=== PATIENT | female | born 1965 | race Two or more races ===

== ENCOUNTER → 2024-05-01 | Outpatient (CLI) | payer OTHER, SELFPAY ==
[2024-05-01 09:37] LABS: Basophils % (Auto) 0 % (0-2.5); Eosinophils # (Auto) 0.3 Thou/mm3 (0.0-0.5); Eosinophils % (Auto) 6 % (0-10); Hematocrit 29.9 % (36.0-46.0); Hemoglobin 9.6 g/dL (12.0-16.0); Immature Granulocytes % (Auto) 0 % (0-0); Lymphocytes % (Auto) 20 % (10-50); Mean Corpuscular HGB Conc 32.1 g/dl (31.0-37.0); Mean Corpuscular Hemoglobin 28.4 pg (25.0-35.0); Mean Corpuscular Volume 89 fL (80-100); Monocytes # (Auto) 0.4 Thou/mm3 (0.0-0.8); Monocytes % (Auto) 8 % (0-12); Neutrophils # (Auto) 3.4 Thou/mm3 (1.8-7.7); Neutrophils % (Auto) 67 % (37-80); Nucleated Red Blood Cell % 0 /100 WBC (0); Platelet Count 223 Thou/mm3 (140-440); RDW Standard Deviation 43.5 fL (36.4-46.3); Red Blood Count 3.38 Miln/mm3 (4.00-5.20); White Blood Count 5.2 Thou/mm3 (3.6-11.0)
[2024-05-01 09:37] LABS: Collection Type, Urine Clean Catch
[2024-05-01 09:57] LABS: Parathyroid Hormone Intact 202.3 pg/ml (18.5-88.0)
[2024-05-01 10:04] LABS: Alanine Aminotransferase 16 U/L (10-49); Albumin, Serum 4.4 gm/dL (3.4-4.8); Albumin/Globulin Ratio 1.6 (1.2-2.2); Anion Gap 9 (7-16); Aspartate Amino Transferase 19 U/L (0-34); BUN/Creatinine Ratio 23 Ratio (12-20); Bilirubin,Total 0.3 mg/dL (0.3-1.2); Blood Urea Nitrogen 91 mg/dL (9-23); Calcium 9.2 mg/dL (8.3-10.6); Calcium (Corrected) 9.2 mg/dL (8.5-10.1); Carbon Dioxide 22.3 mMol/L (20.0-31.0); Chloride 106 mMol/L (98-107); Cholesterol 172 mg/dL (132-200); Globulin 2.8 gm/dL (2.3-3.5); Glucose 99 mg/dL (74-106); HDL Cholesterol 43 mg/dL (40-60); Osmolality,Calculated 301 (275-295); Sodium 137 mMol/L (136-145); Total Protein 7.2 gm/dL (5.7-8.2); Triglycerides 95 mg/dL (30-150); eGFR 12 See Note
[2024-05-01 10:05] LABS: Alkaline Phosphatase 80 U/L (46-116); LDL Cholesterol,Calculated 110 mg/dL (0-130)
[2024-05-01 10:07] LABS: Vitamin D 25 Hydroxy Total 30.7 ng/mL (7.3-40.2)
[2024-05-01 10:40] LABS: Bilirubin,Urine Negative (Negative); Blood,Urine 2+ (Negative); Clarity,Urine Clear (Clear/Hazy); Color,Urine Colorless (Lt Yel-Yel); Glucose, Urine Negative (Negative); Ketones,Urine Negative (Negative); Leukocyte Esterase,Urine Positive (Negative); Nitrite,Urine Negative (Negative); Protein,Urine 1+ (Neg - Trace); RBC,Urine 11 /hpf (0-3); Squamous Epithelial Cell,Urine 1 /hpf (0-5); Urobilinogen,Urine Negative mg/dL (0.0-1.0); WBC,Urine 5 /hpf (0-5)
[2024-05-01 10:56] LABS: Creatinine,Random Urine 50 mg/dL (30-125); Protein Total, Random Urine 71 mg/dL (1-14)
== END | disposition home or self-care (01) ==
LOC: COPL 08:44
PROVIDERS: PCP Family Medicine; Referring Provider Internal Medicine; Visit Provider Internal Medicine
DX: N18.4 Chronic kidney disease, stage 4 (severe) (principal); I10 Essential (primary) hypertension
CPT/HCPCS: 36415; 80053; 80061; 81001; 82306; 82570; 83970; 84156; 85025

== ENCOUNTER → 2024-07-01 | Outpatient (CLI) | payer OTHER, SELFPAY ==
[2024-07-01 15:50] LABS: Collection Type, Urine Clean Catch
[2024-07-01 16:22] LABS: Bilirubin,Urine Negative (Negative); Blood,Urine 2+ (Negative); Clarity,Urine Clear (Clear/Hazy); Color,Urine Colorless (Lt Yel-Yel); Glucose, Urine Negative (Negative); Ketones,Urine Negative (Negative); Leukocyte Esterase,Urine Positive (Negative); Nitrite,Urine Negative (Negative); Protein,Urine 2+ (Neg - Trace); RBC,Urine 13 /hpf (0-3); Squamous Epithelial Cell,Urine 1 /hpf (0-5); Urobilinogen,Urine Negative mg/dL (0.0-1.0); WBC,Urine 5 /hpf (0-5)
[2024-07-01 18:32] LABS: Albumin, Serum 4.3 gm/dL (3.4-4.8); Anion Gap 12 (7-16); BUN/Creatinine Ratio 23 Ratio (12-20); Calcium 10.2 mg/dL (8.3-10.6); Calcium (Corrected) 10.2 mg/dL (8.5-10.1); Carbon Dioxide 21.8 mMol/L (20.0-31.0); Chloride 104 mMol/L (98-107); Glucose 103 mg/dL (74-106); Osmolality,Calculated 312 (275-295); Phosphorous 8.5 mg/dL (2.4-5.1); Potassium 5.2 mMol/L (3.4-5.1); Sodium 138 mMol/L (136-145); eGFR 9 See Note
[2024-07-01 18:35] LABS: Blood Urea Nitrogen 116 mg/dL (9-23)
== END | disposition home or self-care (01) ==
LOC: COPL 15:05
PROVIDERS: PCP Family Medicine; Referring Provider Internal Medicine; Visit Provider Internal Medicine
DX: I12.9 Hypertensive chronic kidney disease with stage 1 through stage 4 chronic kidney disease, or unspecified chronic kidney disease (principal); N18.4 Chronic kidney disease, stage 4 (severe)
CPT/HCPCS: 36415; 80069; 81001

== ENCOUNTER 2024-07-03 15:50 | Observation (INO) | payer OTHER, SELFPAY ==
[2024-07-03 16:08] VITALS: BMI 24.7
--- NOTE | 2024-07-03 16:12 | PD.NEPHHP ---
Documentation for date of: 07/03/24 History of Present Illness History of Present Illness Chief complaint: LORETTA on CKD 5 History of present illness: Ms. Carrillo is a 58year-old female with a history of polycystic kidney disease (40 years-has been declining medical treatment including CECI inhibitor/ARB/Jynarque), CKD stage V secondary to PCKD, asthma, renal osteodystrophy has been following up with me for the last few years and noted to have worsening renal function with a significant azotemia, anemia, hypercalcemia,hyperphosphatemia that I had to send her to the hospital for initiation of dialysis. Renal replacement therapy options given to the patient and patient chose home dialysis. Spoke to Dr. Smith who will do peritoneal dialysis catheter tomorrow. Patient admitted tonight for PD catheter placement tomorrow. Blood pressure 140/94, heart rate 87. Home medications included amlodipine, albuterol, calcitriol, vitamin D, Flonase, questionable gabapentin, potassium Labs showed WBC 6.2, hemoglobin 8.8, platelets 221. INR 1. Sodium 136, potassium 4.7, bicarbonate 21, BUN 4.7, GFR 10, calcium 11.1 hep panel negative. Patient currently seen in medical floor. Review of Systems Review of Systems Narrative Review of Systems: CONSTITUTIONAL: Patient denies any fever, chills. Complaining of fatigue HEENT: Denies any visual disturbances or hearing problems. CARDIOVASCULAR: Patient denies any chest pain, shortness of breath, swelling in the lower extremities. PULMONARY: Patient denies any shortness of breath, cough. GASTROINTESTINAL: Patient denies any abdominal pain, constipation, nausea, vomiting, diarrhea. GENITOURINARY: Patient denies any urinary symptoms of burning or frequency or hematuria, denies any form in the urine. SKIN: Denies any rash. MUSCULOSKELETAL: Denies any muscular skeletal problems of joint pains. NEUROLOGICAL: Denies any neurological problems of strokes, seizures or confusion. Denies any memory problems. PSYCHIATRIC: Denies any depression or anxiety. LYMPHATICS : No lymphadenopathy Past Medical History Past Medical History NEUROLOGIC: Negative Neurological Disorders CARDIAC: Negative Cardiac Disorders or Congestive Heart Failure RESPIRATORY: Positive Asthma; Negative Chronic Obstructive Pulmonary Disease (COPD) GASTROINTESTINAL: Negative Gastrointestinal Disorders GENITOURINARY: Positive Renal Disease and Polycystic Kidney Disease REPRODUCTIVE: Negative Pelvic Inflammatory Disease MUSCULOSKELETAL: Positive Arthritis; Negative Musculoskeletal Disorders ENDOCRINE: Negative Endocrine Disorders, Diabetes Mellitus Type 1 or Diabetes Mellitus Type 2 HEMATOLOGIC: Negative Blood Disorders OTHER HISTORY: Negative Autoimmune Disease or Cancer Surgical History SURGICAL: Positive Tubal Ligation Social History SMOKING STATUS: Never smoker SECOND HAND EXPOSURE: No Meds Home Medications and Allergies Home Medications ?Medication ?Instructions ?Recorded ?Confirmed ?Type albuterol sulfate 90 mcg/actuation 1 - 2 puff inhalation Q6HR PRN 12/22/20 07/03/24 History aerosol inhaler (ProAir HFA) Shortness Of Breath ergocalciferol (vitamin D2) 1,250 1,250 mcg PO QWEEK 12/22/20 06/20/22 History mcg (50,000 unit) capsule (Vitamin D2) omega 7-pty-qrv-fish oil 1,000 mg 1 cap PO QDAY 12/22/20 07/03/24 History (120 mg-180 mg) capsule (Fish Oil) fluticasone propionate 44 1 puff inhalation BID 05/12/22 07/03/24 History mcg/actuation HFA aerosol inhaler (Flovent HFA) gabapentin 100 mg capsule 100 mg PO QDAY 05/12/22 06/20/22 History potassium chloride 10 mEq 10 meq PO QDAY 05/12/22 05/12/22 History tablet,extended release(part/cryst) B-complex with vitamin C 1 tab PO QDAY 07/03/24 07/03/24 History amlodipine 5 mg tablet 5 mg PO BID 07/03/24 07/03/24 History calcitriol 0.5 mcg capsule 0.5 mcg PO Q12H 07/03/24 07/03/24 History Allergies Allergy/AdvReac Type Severity Reaction Status Date / Time Iodinated Contrast Media Allergy Mild Itching Verified 05/24/22 06:54 Exam Vital Signs Temp Pulse Resp BP Pulse Ox O2 Del Method 36.3 C 81 18 136/87 H 99 Room Air 05/13/22 08:00 05/13/22 08:00 05/13/22 08:00 05/13/22 08:00 05/13/22 08:00 05/13/22 08:00 Narrative Exam GENERAL APPEARANCE: Patient in floor. Uremic breath noted. CARDIOVASCULAR: Heart regular, no murmurs LUNGS/CHEST: Chest clear to auscultation. No rales, rhonchi, wheezing ABDOMEN: Soft, nontender, nondistended. No masses. Normal bowel sounds. EXTREMITIES: No edema, clubbing or cyanosis. SKIN: Skin exam normal without any rashes MUSCULOSKELETAL: Musculoskeletal exam normal PSYCHIATRIC: Normal mood, affect LYMPHATICS: No lymphadenopathy noted NEUROLOGICAL : No neurological deficits Results: Labs 07/03/24 17:12 07/03/24 17:12 Assessment & Plan Assessment and plan (1) Acute on chronic renal failure: Status: Acute (2) ADPKD (autosomal dominant polycystic kidney disease): Status: Acute (3) Intractable back pain: Status: Acute (4) Anemia: Status: Acute (5) Renal osteodystrophy: Status: Acute Additional Assessment & Plan Additional Plan: 1) Acute on chronic renal failure: ?Status:?Acute ? ? ? Assessment and plan: Acute on chronic renal insufficiency secondary to slow progression of her underlying polycystic kidney disease leading towards end-stage kidney failure. Renal replacement therapy options given. Patient chose peritoneal dialysis. Dr Smith planning to do PD catheter tomorrow.?Underlying CKD stage V from progressive polycystic kidney disease.? Patient has PCKD for more than 40 years.? She has been declining all medical management.? Several times I offered JYNARQUE but she declined. Marked azotemia noted. (2) ADPKD (autosomal dominant polycystic kidney disease): ?Status:?Acute ? ? ? Assessment and plan: Progressive disease.? Has been slowly progressing over the past 40 years--now in end-stage failure. (3) renal osteodystrophy : ?Status:?Acute ? ? ? Assessment and plan: Noted hypercalcemia. Will discontinue vitamin D and calcitriol. (4) back pain: ?Status:?Acute ? ? ? Assessment and plan: Intractable back pain from polycystic kidney disease (5) Anemia: ?Status:?Acute ? ? ? Assessment and plan: I gave iron, Procrit.? Estimated length of stay 1 to 2 days DVT prophylaxis ambulate GI prophylaxis not needed CODE STATUS full code Disposition Quality Measures Quality Measures VTE prophylaxis
[2024-07-03 16:14] VITALS: BP 143/88; PULSE 91; RESP 16; TEMP 36.7; O2SAT 99
[2024-07-03 17:27] LABS: Basophils % (Auto) 0 % (0-2.5); Eosinophils # (Auto) 0.2 Thou/mm3 (0.0-0.5); Eosinophils % (Auto) 4 % (0-10); Hematocrit 26.8 % (36.0-46.0); Immature Granulocytes % (Auto) 0 % (0-0); Immature Granulocytes Auto 0.01 Thou/mm3 (0.00-0.00); Lymphocytes # (Auto) 1.4 Thou/mm3 (1.0-4.8); Lymphocytes % (Auto) 22 % (10-50); Mean Corpuscular HGB Conc 32.8 g/dl (31.0-37.0); Mean Corpuscular Hemoglobin 29.2 pg (25.0-35.0); Mean Corpuscular Volume 89 fL (80-100); Monocytes # (Auto) 0.5 Thou/mm3 (0.0-0.8); Monocytes % (Auto) 8 % (0-12); Neutrophils # (Auto) 4.1 Thou/mm3 (1.8-7.7); Neutrophils % (Auto) 66 % (37-80); Nucleated Red Blood Cell % 0 /100 WBC (0); Platelet Count 221 Thou/mm3 (140-440); RDW Standard Deviation 42.1 fL (36.4-46.3); Red Blood Count 3.01 Miln/mm3 (4.00-5.20); White Blood Count 6.2 Thou/mm3 (3.6-11.0)
[2024-07-03 17:30] LABS: Hemoglobin 8.8 g/dL (12.0-16.0)
[2024-07-03 18:01] LABS: Partial Thromboplastin Time 25.6 Seconds (22.0-36.0); Prothrombin Time 10.7 Seconds (9.0-12.2)
[2024-07-03 18:08] LABS: Alanine Aminotransferase 12 U/L (10-49); Albumin, Serum 4.6 gm/dL (3.4-4.8); Albumin/Globulin Ratio 1.5 (1.2-2.2); Alkaline Phosphatase 66 U/L (46-116); Anion Gap 12 (7-16); Aspartate Amino Transferase 17 U/L (0-34); BUN/Creatinine Ratio 22 Ratio (12-20); Bilirubin,Total 0.3 mg/dL (0.3-1.2); Calcium 11.1 mg/dL (8.3-10.6); Calcium (Corrected) 11.1 mg/dL (8.5-10.1); Chloride 103 mMol/L (98-107); Creatinine (Component) 4.7 mg/dL (0.6-1.3); Estimated Creatinine Clearance 10.5 mL/min (>60); Glucose 94 mg/dL (74-106); Osmolality,Calculated 304 (275-295); Potassium 4.7 mMol/L (3.4-5.1); Sodium 136 mMol/L (136-145); Total Protein 7.6 gm/dL (5.7-8.2); eGFR 10 See Note
[2024-07-03 18:10] LABS: Blood Urea Nitrogen 104 mg/dL (9-23)
--- NOTE | 2024-07-03 18:34 | PC.NURSE ---
Dr. Slater aware pt. Home meds have been entered. States I will order home meds, please enter orders for pt. home inhalers to be used as pt. home meds and I will do the others. orders to insert IV as IVL now.
[2024-07-03 18:36] LABS: Hepatitis A Antibody IgM Non Reactive (Non React); Hepatitis B Core Antibody IgM Non Reactive (Non React); Hepatitis B Surface Antigen Non Reactive (Non React); Hepatitis C Antibody Non Reactive (Non React)
[2024-07-03] MEDS: TUBERCULIN PPD INJ 5 UNIT/0.1 ML DOSE ID (18:50)
[2024-07-03 20:00] VITALS: BP 140/94; PULSE 87; RESP 16; TEMP 36.4; O2SAT 99
[2024-07-03 21:14] VITALS: BP 140/94; PULSE 87
[2024-07-03] MEDS: amLODIPine BESYLATE 5 MG TABLET PO (21:14)
[2024-07-03 23:45] VITALS: BP 149/79; PULSE 90; RESP 20; TEMP 36.6; O2SAT 98
[2024-07-03 23:49] VITALS: PULSE 90; RESP 18; O2SAT 98
[2024-07-03] MEDS: ALBUTEROL INH 8 GM 1 PUFF INH (23:49)
[2024-07-04] VITALS (12 sets, daily range): BP systolic 131–165; BP diastolic 72–93; PULSE 74–90; RESP 15–97; TEMP 36.2–36.9; O2SAT 97–100
[2024-07-04 05:55] LABS: Basophils % (Auto) 0 % (0-2.5); Eosinophils # (Auto) 0.3 Thou/mm3 (0.0-0.5); Eosinophils % (Auto) 5 % (0-10); Hematocrit 25.9 % (36.0-46.0); Immature Granulocytes % (Auto) 0 % (0-0); Immature Granulocytes Auto 0.01 Thou/mm3 (0.00-0.00); Lymphocytes # (Auto) 1.3 Thou/mm3 (1.0-4.8); Lymphocytes % (Auto) 24 % (10-50); Mean Corpuscular HGB Conc 32.4 g/dl (31.0-37.0); Mean Corpuscular Hemoglobin 28.7 pg (25.0-35.0); Mean Corpuscular Volume 88 fL (80-100); Monocytes # (Auto) 0.5 Thou/mm3 (0.0-0.8); Monocytes % (Auto) 9 % (0-12); Neutrophils # (Auto) 3.3 Thou/mm3 (1.8-7.7); Neutrophils % (Auto) 62 % (37-80); Nucleated Red Blood Cell % 0 /100 WBC (0); Platelet Count 211 Thou/mm3 (140-440); RDW Standard Deviation 41.8 fL (36.4-46.3); Red Blood Count 2.93 Miln/mm3 (4.00-5.20); White Blood Count 5.4 Thou/mm3 (3.6-11.0)
[2024-07-04 06:02] LABS: Hemoglobin 8.4 g/dL (12.0-16.0)
[2024-07-04 06:40] LABS: Alanine Aminotransferase 11 U/L (10-49); Albumin, Serum 4.1 gm/dL (3.4-4.8); Albumin/Globulin Ratio 1.4 (1.2-2.2); Alkaline Phosphatase 64 U/L (46-116); Anion Gap 9 (7-16); Aspartate Amino Transferase 16 U/L (0-34); BUN/Creatinine Ratio 23 Ratio (12-20); Bilirubin,Total 0.3 mg/dL (0.3-1.2); Calcium 11.3 mg/dL (8.3-10.6); Calcium (Corrected) 11.3 mg/dL (8.5-10.1); Carbon Dioxide 20.2 mMol/L (20.0-31.0); Chloride 107 mMol/L (98-107); Creatinine (Component) 4.7 mg/dL (0.6-1.3); Estimated Creatinine Clearance 10.5 mL/min (>60); Glucose 113 mg/dL (74-106); Osmolality,Calculated 306 (275-295); Potassium 4.9 mMol/L (3.4-5.1); Sodium 136 mMol/L (136-145); Total Protein 7.1 gm/dL (5.7-8.2); eGFR 10 See Note
[2024-07-04 06:58] LABS: Blood Urea Nitrogen 106 mg/dL (9-23)
--- NOTE | 2024-07-04 08:41 | ESPR_ITS ---
Documentation for date of: 07/04/24 Subjective Subjective Interval history: Jess Carrillo is a 58 year-old female with a past medical history of polycystic kidney disease (40 years, has been declining medical treatment including CECI inhibitor/ARB/Jynarque), CKD stage V secondary to PCKD, asthma, and renal osteodystrophy who has followed Dr. Slater for the last few years and noted to have worsening renal function with significant azotemia, anemia, hypercalcemia, and hyperphosphatemia that was sent to the ED for initiation of dialysis. PETROLEUM ENGINEER options were given to the patient and she chose home dialysis. Dr. Smith was consulted for placement of PD catheter. In ED, BP 140/94, HR 87. WBC 6.2, hemoglobin 8.8, platelets 221. INR 1. Na 136, K 4.7, bicarbonate 21, BUN 4.7, Cr 4.7, GFR 10, Ca 11.1, hep panel negative. Home meds include amlodipine, albuterol, calcitriol, vitamin D, Flonase, ? gabapentin, potassium. 07/04: Seen and examined on medical floor, laying comfortably in bed. No acute overnight events reported. PPD placed 07/03 and is to be read tomorrow. Currently NPO, pending procedure. Will give Retacrit and Feraheme as hemoglobin noted to be dropping from 8.8 to 8.4. BUN 106, Cr 4.7, GFR 10, Ca 11.3. Will hold calcitriol and vitamin D given elevated Ca. Exam Vital Signs Temp Pulse Resp BP Pulse Ox O2 Del Method 97.2 F 87 18 145/77 H 98 Room Air 07/04/24 07:48 07/04/24 07:48 07/04/24 07:48 07/04/24 07:48 07/04/24 07:48 07/04/24 07:48 Narrative Exam General: AOx3, no acute distress, able to speak full sentences HEENT: NC/AT, mucous membranes moist, bilateral sclera anicteric Cardiovascular: regular rate and rhythm, S1/S2 present, no murmurs appreciated Pulmonary: clear to auscultation bilaterally, no rales/rhonchi/wheezes Abdominal: soft, non-tender, non-distended, no rebound/guarding, normal bowel sounds present Musculoskeletal: normal ROM, no peripheral edema Skin: warm and dry, intact, no rashes Neuro: CN II-XII intact, no focal deficits Objective Labs 07/05/24 05:00 07/04/24 04:38 Labs: Laboratory Results - last 24 hr 07/03/24 07/04/24 17:12 04:38 WBC 6.2 5.4 RBC 3.01 L 2.93 L Hgb 8.8 L 8.4 L Hct 26.8 L 25.9 L MCV 89 88 MCH 29.2 28.7 MCHC 32.8 32.4 RDW Std Deviation 42.1 41.8 Plt Count 221 211 Neut % (Auto) 66 62 Lymph % (Auto) 22 24 [place] % (Auto) 8 9 Eos % (Auto) 4 5 Baso % (Auto) 0 0 Neut # (Auto) 4.1 3.3 Lymph # (Auto) 1.4 1.3 [place] # (Auto) 0.5 0.5 Eos # (Auto) 0.2 0.3 Baso # (Auto) 0.0 0.0 Immature Gran # (Auto) 0.01 H 0.01 H Absolute Nucleated RBC 0.00 0.00 Immature Gran % 0 0 Nucleated RBC % 0 0 PT 10.7 INR 1.0 APTT 25.6 Sodium 136 136 Potassium 4.7 D 4.9 Chloride 103 107 Carbon Dioxide 21.0 20.2 Anion Gap 12 9 BUN 104 H* 106 H* Creatinine 4.7 H* 4.7 H* Estim Creat Clear Calc 10.5 L 10.5 L eGFR 10 L* 10 L* BUN/Creatinine Ratio 22 H 23 H Glucose 94 113 H Calculated Osmolality 304 H 306 H Calcium 11.1 H 11.3 H Corrected Calcium 11.1 H 11.3 H Total Bilirubin 0.3 0.3 AST 17 16 ALT 12 11 Alkaline Phosphatase 66 64 Total Protein 7.6 7.1 Albumin 4.6 4.1 D Globulin 3.0 3.0 Albumin/Globulin Ratio 1.5 1.4 Hepatitis A IgM Ab Non Reactive Hep Bs Antigen Non Reactive Hep B Core IgM Ab Non Reactive Hepatitis C Antibody Non Reactive Quality Measures Quality Measures VTE prophylaxis Assessment & Plan Assessment Current Active Medications: Generic Name Dose Route Start Last Admin Trade Name Freq PRN Reason Stop Dose Admin Albuterol 1 puff 07/03/24 19:10 07/03/24 23:49 Albuterol Inh 8 Gm INH 08/02/24 19:09 1 puff Q6H PRN Administration SHORTNESS OF BREATH Amlodipine Besylate 5 mg 07/03/24 21:00 07/03/24 21:14 Amlodipine Besylate 5 Mg Tablet PO 08/02/24 20:59 5 mg BID [place] Administration Artificial Tears 0 drop 07/04/24 06:04 Artificial Tears 225 Drop/15 Ml Btl BOTH EYES 08/03/24 06:03 PRN PRN TO KEEP EYES MOIST Epoetin Kashif 10,000 unit 07/04/24 08:24 Epoetin Kashif-Epbx Inj 10,000 Unit/Ml Vial (Esrd) SC 07/04/24 08:25 X1 ONE Guaifenesin/Dextromethorphan 1 each 07/04/24 08:24 Guaifenesin/Dm Tablet PO 08/03/24 08:23 BID PRN COUGH Ferumoxytol 510 mg/ Sodium 117 mls @ 234 mls/hr 07/04/24 08:40 Chloride IV 07/04/24 08:41 X1 ONE Non-Formulary Medication 1 cap 07/04/24 09:00 [place] 1-Lqz-Hec-Fish Oil [Fish Oil] PO 08/03/24 08:59 QDAY [place] Trelegy Ellipta ( 1 ea 07/04/24 09:00 Fluticasone/ INH 08/03/24 08:59 Umeclidinium/ QDAY [place] Vilanterol) 100/62.5 /25 Plan Jess Carrillo is a 58 year-old female with a past medical history of polycystic kidney disease (40 years, has been declining medical treatment including CECI inhibitor/ARB/Jynarque), CKD stage V secondary to PCKD, asthma, and renal osteodystrophy who has followed Dr. Slater for the last few years and noted to have worsening renal function with significant azotemia, anemia, hypercalcemia, and hyperphosphatemia admitted for PD catheter placement and initiation of PETROLEUM ENGINEER. #Acute on chronic renal failure #ADPKD Acute on chronic renal insufficiency secondary to slow progression (~ 40 years) of underlying PKD leading towards ESRD but patient declined all medical management, including JYNARQUE. PETROLEUM ENGINEER options given and patient chose peritoneal dialysis. - Dr. Smith consulted, plans for PD placement today - NPO - PPD placed 07/03, pending read on 07/05 - Hepatitis panel negative #Renal osteodystrophy, secondary to CKD Home calcitriol and vitamin D, but will hold given hypercalcemia of 11.3. #Chronic, normocytic anemia, likely secondary to CKD - Retacrit 10,000 units SC x1 - Feraheme 510 mg IV x1 #Hypertension - Amlodipine 5 mg PO BID #Asthma - Trelegy Ellipta - Albuterol inhaler PRN Hospital management: Disposition: pending PD catheter placement Diet: NPO Lines: peripheral CODE STATUS: full code ----- Plan discussed with attending physician Dr. Nohemy Jang MD PGY-1 Internal Medicine Attending Provider Attestation/Addendum Patient seen and examined with resident physician Dr. Ricketts. Note reviewed, agree with findings and recommendations. Patient currently seen in medical floor. Pending PD catheter placement. Will discharge her tomorrow. Give IV iron and Procrit. Pending outpatient dialysis arrangements.
[2024-07-04] MEDS: amLODIPine BESYLATE 5 MG TABLET PO ×2 (09:16→20:45)
[2024-07-04] MEDS: TRELEGY ELLIPTA 1 EA INH (09:56)
[2024-07-04] MEDS: ACETAMINOPHEN 325 MG TABLET 650 MG PO (11:12)
[2024-07-04] MEDS: ferumoxytoL (ESRD) 510 MG in SODIUM CHLORIDE 0.9% 100 ML 234 MG IV (11:18)
--- NOTE | 2024-07-04 11:55 | PD.SURCONS ---
HPI Consult details Consult date: 07/03/24 Reason for consultation narrative: End-stage renal disease requiring dialysis History of present illness: 58-year-old female with history of hypertension, polycystic kidney disease was noted to have worsening renal function. In anticipation for need for dialysis, patient will require dialysis access. She has elected to proceed with peritoneal dialysis. She denies nausea, vomiting, fever, chills or abdominal pain. Review of Systems Constitutional Constitutional: Denies chills and Denies fever(s) Cardiovascular Cardiovascular: Denies chest pain Respiratory Respiratory: Denies cough Gastrointestinal Gastrointestinal: Denies abdominal pain, Denies nausea and Denies vomiting Genitourinary Genitourinary: Denies dysuria Hematologic/Lymphatic Hematologic/Lymphatic: Denies easy bleeding and Denies easy bruising Past Medical History Surgical History OTHER SURGICAL HX: Tubal ligation, repair of rotator cuff Social History SMOKING STATUS: Never smoker SUBSTANCE USE: does not use ALCOHOL: Never Meds Home Medications and Allergies Home Medications ?Medication ?Instructions ?Recorded ?Confirmed ?Type albuterol sulfate 90 mcg/actuation 1 - 2 puff inhalation Q6HR PRN 12/22/20 07/03/24 History aerosol inhaler (ProAir HFA) Shortness Of Breath ergocalciferol (vitamin D2) 1,250 1,250 mcg PO QWEEK 12/22/20 06/20/22 History mcg (50,000 unit) capsule (Vitamin D2) omega 4-dvi-iij-fish oil 1,000 mg 1 cap PO QDAY 12/22/20 07/03/24 History (120 mg-180 mg) capsule (Fish Oil) fluticasone propionate 44 1 puff inhalation BID 05/12/22 07/03/24 History mcg/actuation HFA aerosol inhaler (Flovent HFA) gabapentin 100 mg capsule 100 mg PO QDAY 05/12/22 06/20/22 History potassium chloride 10 mEq 10 meq PO QDAY 05/12/22 05/12/22 History tablet,extended release(part/cryst) B-complex with vitamin C 1 tab PO QDAY 07/03/24 07/03/24 History amlodipine 5 mg tablet 5 mg PO BID 07/03/24 07/03/24 History calcitriol 0.5 mcg capsule 0.5 mcg PO Q12H 07/03/24 07/03/24 History Allergies Allergy/AdvReac Type Severity Reaction Status Date / Time Iodinated Contrast Media Allergy Mild Itching Verified 05/24/22 06:54 Exam Vital Signs Temp Pulse Resp BP Pulse Ox O2 Del Method 97.2 F 89 18 142/75 H 98 Room Air 07/04/24 07:48 07/04/24 09:16 07/04/24 07:48 07/04/24 09:16 07/04/24 07:48 07/04/24 07:48 Constitutional Constitutional: no acute distress Routine Abdominal Exam Abdominal: Present soft and normoactive bowel sounds; Absent tenderness or distended Assessment & Plan Problem List (1) Acute on chronic renal failure: Status: Acute Plan Will plan for laparoscopic assisted placement of peritoneal dialysis catheter with possible omentopexy. Risks include but not limited to infection, bleeding, injury to bowel, malfunctioning of the catheter, catheter infection, peritonitis, need for further procedure and or operation discussed with the patient. Benefits alternatives explained to her, all her questions answered, she agreed and consented to proceed with the operation. I wish to extend my most sincere thanks to Dr. Slater for consulting me and allowing me to evaluate and participate in care of this patient. (1) Acute on chronic renal failure Qualifiers: Acute renal failure type: unspecified Chronic kidney disease stage: stage 5 (GFR < 15), not on chronic dialysis Qualified Code(s): N17.9 - Acute kidney failure, unspecified; N18.5 - Chronic kidney disease, stage 5
--- NOTE | 2024-07-04 13:12 | PD.SUROPNT ---
Date of Procedure 07/04/24 Pre Op Diagnosis End-stage renal disease Post Op Diagnosis End-stage renal disease Procedure Laparoscopic assisted placement of peritoneal dialysis catheter Findings No evidence of pelvic or abdominal adhesions Procedure Description Patient brought into the operating room in supine position. After administration of general endotracheal anesthesia, patient's abdomen was prepped and draped in standard surgical manner. An approximately 5 mm incision was made in right upper quadrant and Veress needle was inserted. Pneumoperitoneum was obtained up to 15 mmHg and the Veress needle was removed. A 5 mm trocar was placed and laparoscopic camera was inserted. Under direct visualization a laparoscopic camera a 5 mm trocar was placed in left side of the abdomen, this would be used is the exit site of the catheter. The abdomen was inspected. There was no evidence of pelvic or abdominal adhesions. There were no omentum in the pelvis. An approximately 3 cm incision was made to the left of the umbilicus and dissection was carried subcutaneous tissue. A 10 mm trocar was placed through this incision and the peritoneal dialysis catheter was placed through this trocar and advanced into patient's pelvis, the trocar was then removed. The curved end of the catheter was positioned in patient's pelvis. Using an Endo closure device a suture was placed around the catheter in suprapubic region to hold the catheter in place and prevent potential displacement of the catheter in the future. The proximal cuff of the catheter was placed posterior to anterior abdominal fascia in a pursestring suture using 0 Ethibond placed around the catheter to hold the catheter in place and prevent leakage of fluid around the catheter site. Using the tunneling device a tunnel was created in subcutaneous soft tissue and the catheter was placed in soft tissue tunnel and brought out of left abdominal trocar site. The distal cuff was placed in soft tissue. The catheter was flushed with heparinized saline, fluid was being flushed and aspirated without difficulty. Pneumoperitoneum was evacuated and trocars removed. The incisions closed 4-0 Monocryl in subcuticular fashion. Instruments, needles and sponge counts were reported to be correct ?2. Patient tolerated the procedure well, was extubated, breathing spontaneously and without difficulty and was transferred to postanesthesia care in stable condition. Anesthesia GETA and local Pathology / specimen None Estimated Blood Loss 2 Condition Stable Disposition PACU Surgeon Latanya Smith MD Surgical Staff Operation Date: 01/30/25 15:15 <No data on this case meets the specified criteria>
--- NOTE | 2024-07-04 13:22 | SUR.PHASEI ---
1315: Pt. arrived with oral airway in place, vitals stable, breathing unlabored, no signs of distress, dressing to left lower ABD CDI, no active bleed noted, report received from Christophe BRAGA, Jazmin PEREZ, and Vadim ANN.
--- NOTE | 2024-07-04 13:50 | SUR.PHASEI ---
1350: Pt. AAOx4, vitals stable, breathing unlabored, no complaint of pain or nausea, dressing to left lower ABD CDI, no active bleed noted, pt. tolerated bites of ice well, gave report to Jan ANN prior to transfer to room 352. Family made aware of transfer to room.
--- NOTE | 2024-07-04 15:15 | PC.SS ---
Patient is alert/oriented. Patient was admitted for LORETTA, uremia. Patient is independent with ADL's. SS spoke to [employer] and patient will be new to Peritoneal Dialysis. Patient will start training at [facility]. Patient is independent with ADL's. She resides with her . She is employed with [employer]. Patient is aware she will be new to PD. She didn't know she would train at the facililty. SS explained process. Patient states her PCP: Dr. Lee and Smash Piecer is Dr. Slater. Patient pharmacy: [facility]. Patient states she will be returning home and her spouse and family will assist as needed. SS will send updated information to dialysis. Patient to receive dialysis cath today. Spouse, Alex, is the alt medical decision maker.
[2024-07-04] MEDS: EPOETIN ALFA-EPBX INJ 10,000 UNIT/ML VIAL (ESRD) 10000 UNIT SC (15:52)
[2024-07-04] MEDS: ONDANSETRON INJ 2 MG/ML INJ 2 ML 4 MG IV (20:44)
[2024-07-04] MEDS: DOCUSATE SOD 100 MG CAPSULE PO (20:45)
[2024-07-04] MEDS: ACETAMINOPHEN 500 MG TABLET PO (20:45)
[2024-07-04 22:09] LABS: Collection Type, Urine Clean Catch
[2024-07-04 22:37] LABS: Bilirubin,Urine Negative (Negative); Blood,Urine 2+ (Negative); Clarity,Urine Clear (Clear/Hazy); Color,Urine Colorless (Lt Yel-Yel); Culture Indicated,Urine Not Indicated; Glucose, Urine 2+ (Negative); Ketones,Urine Negative (Negative); Leukocyte Esterase,Urine Positive (Negative); Nitrite,Urine Negative (Negative); Protein,Urine 2+ (Neg - Trace); RBC,Urine 39 /hpf (0-3); Squamous Epithelial Cell,Urine 2 /hpf (0-5); Urobilinogen,Urine Negative mg/dL (0.0-1.0); WBC,Urine 7 /hpf (0-5)
[2024-07-05] VITALS (10 sets, daily range): BP systolic 115–165; BP diastolic 73–91; PULSE 92–108; RESP 16–94; TEMP 36.5–36.9; O2SAT 92–99; BMI 24.7
[2024-07-05] MEDS: guaiFENesin/DM TABLET 1 EACH PO (02:20)
[2024-07-05 05:23] LABS: Basophils % (Auto) 0 % (0-2.5); Eosinophils % (Auto) 0 % (0-10); Hematocrit 26.8 % (36.0-46.0); Immature Granulocytes % (Auto) 1 % (0-0); Immature Granulocytes Auto 0.05 Thou/mm3 (0.00-0.00); Lymphocytes # (Auto) 0.4 Thou/mm3 (1.0-4.8); Lymphocytes % (Auto) 4 % (10-50); Mean Corpuscular HGB Conc 32.5 g/dl (31.0-37.0); Mean Corpuscular Hemoglobin 28.7 pg (25.0-35.0); Mean Corpuscular Volume 88 fL (80-100); Monocytes # (Auto) 0.7 Thou/mm3 (0.0-0.8); Monocytes % (Auto) 7 % (0-12); Neutrophils # (Auto) 8.9 Thou/mm3 (1.8-7.7); Neutrophils % (Auto) 89 % (37-80); Nucleated Red Blood Cell % 0 /100 WBC (0); Platelet Count 193 Thou/mm3 (140-440); RDW Standard Deviation 42.2 fL (36.4-46.3); Red Blood Count 3.03 Miln/mm3 (4.00-5.20)
[2024-07-05 05:36] LABS: Hemoglobin 8.7 g/dL (12.0-16.0)
[2024-07-05] MEDS: ONDANSETRON INJ 2 MG/ML INJ 2 ML 4 MG IV ×2 (05:50→21:07)
[2024-07-05 06:16] LABS: Alanine Aminotransferase 8 U/L (10-49); Albumin, Serum 4.2 gm/dL (3.4-4.8); Albumin/Globulin Ratio 1.3 (1.2-2.2); Alkaline Phosphatase 57 U/L (46-116); Anion Gap 12 (7-16); Aspartate Amino Transferase 16 U/L (0-34); BUN/Creatinine Ratio 21 Ratio (12-20); Bilirubin,Total 0.2 mg/dL (0.3-1.2); Calcium 10.9 mg/dL (8.3-10.6); Calcium (Corrected) 10.9 mg/dL (8.5-10.1); Carbon Dioxide 21.2 mMol/L (20.0-31.0); Chloride 104 mMol/L (98-107); Estimated Creatinine Clearance 9.9 mL/min (>60); Globulin 3.3 gm/dL (2.3-3.5); Glucose 137 mg/dL (74-106); Osmolality,Calculated 308 (275-295); Potassium 5.1 mMol/L (3.4-5.1); Sodium 137 mMol/L (136-145); Total Protein 7.5 gm/dL (5.7-8.2); eGFR 9 See Note
[2024-07-05 06:19] LABS: Blood Urea Nitrogen 104 mg/dL (9-23)
[2024-07-05] MEDS: DOCUSATE SOD 100 MG CAPSULE PO ×2 (08:22→21:01)
[2024-07-05] MEDS: ACETAMINOPHEN 500 MG TABLET PO ×2 (08:22→21:07)
[2024-07-05] MEDS: amLODIPine BESYLATE 5 MG TABLET PO ×2 (08:23→21:01)
--- NOTE | 2024-07-05 08:26 | ESPR_ITS ---
Documentation for date of: 07/05/24 Subjective Subjective Interval history: Jess Carrillo is a 58 year-old female with a past medical history of polycystic kidney disease (40 years, has been declining medical treatment including CECI inhibitor/ARB/Jynarque), CKD stage V secondary to PCKD, asthma, and renal osteodystrophy who has followed Dr. Slater for the last few years and noted to have worsening renal function with significant azotemia, anemia, hypercalcemia, and hyperphosphatemia that was sent to the ED for initiation of dialysis. IP LITIGATION PARALEGAL options were given to the patient and she chose home dialysis. Dr. Smith was consulted for placement of PD catheter. In ED, BP 140/94, HR 87. WBC 6.2, hemoglobin 8.8, platelets 221. INR 1. Na 136, K 4.7, bicarbonate 21, BUN 4.7, Cr 4.7, GFR 10, Ca 11.1, hep panel negative. Home meds include amlodipine, albuterol, calcitriol, vitamin D, Flonase, ? gabapentin, potassium. 07/04: Seen and examined on medical floor, laying comfortably in bed. No acute overnight events reported. PPD placed 07/03 and is to be read tomorrow. Currently NPO, pending procedure. Will give Retacrit and Feraheme as hemoglobin noted to be dropping from 8.8 to 8.4. BUN 106, Cr 4.7, GFR 10, Ca 11.3. Will hold calcitriol and vitamin D given elevated Ca. 07/05: Seen and examined at bedside on medical floor. No acute overnight events reported. Status postplacement of PD catheter yesterday, without any intraoperative complications. However, patient states that she has had abdominal discomfort since procedure that radiates to the epigastrium. Spoke to Dr. Smith over the phone, stating that this likely due to catheter tip irritating surrounding tissues. Recommended having a bowel movement to relieve pain so will give dulxcolax to facilitate BM as well as pyridium. Patient also endorses headaches and will give sumatriptan. PPD to be read later on this evening around 6 PM. Exam Vital Signs Temp Pulse Resp BP Pulse Ox O2 Del Method O2 Flow Rate 98.5 F 96 17 155/86 H 99 Room Air 2 07/05/24 08:00 07/05/24 08:23 07/05/24 08:00 07/05/24 08:23 07/05/24 08:00 07/05/24 08:00 07/04/24 13:25 Narrative Exam General: AOx3, in mild distress due to headache and abdominal discomfort, able to speak full sentences HEENT: NC/AT, mucous membranes moist, bilateral sclera anicteric Cardiovascular: regular rate and rhythm, S1/S2 present, no murmurs appreciated Pulmonary: clear to auscultation bilaterally, no rales/rhonchi/wheezes Abdominal: mild tenderness to palpation in center of abdomen, soft Musculoskeletal: normal ROM, no peripheral edema Skin: warm and dry, intact, no rashes Neuro: CN II-XII intact, no focal deficits Objective Labs 07/06/24 06:40 07/06/24 06:40 Labs: Laboratory Results - last 24 hr 07/04/24 07/05/24 21:35 05:00 WBC 10.0 D RBC 3.03 L Hgb 8.7 L Hct 26.8 L MCV 88 MCH 28.7 MCHC 32.5 RDW Std Deviation 42.2 Plt Count 193 Neut % (Auto) 89 H Lymph % (Auto) 4 L Marshall % (Auto) 7 Eos % (Auto) 0 Baso % (Auto) 0 Neut # (Auto) 8.9 H Lymph # (Auto) 0.4 L Marshall # (Auto) 0.7 Eos # (Auto) 0.0 Baso # (Auto) 0.0 Immature Gran # (Auto) 0.05 H Absolute Nucleated RBC 0.00 Immature Gran % 1 H Nucleated RBC % 0 Sodium 137 Potassium 5.1 Chloride 104 Carbon Dioxide 21.2 Anion Gap 12 BUN 104 H* Creatinine 5.0 H* Estim Creat Clear Calc 9.9 L eGFR 9 L* BUN/Creatinine Ratio 21 H Glucose 137 H Calculated Osmolality 308 H Calcium 10.9 H Corrected Calcium 10.9 H Total Bilirubin 0.2 L AST 16 ALT 8 L Alkaline Phosphatase 57 Total Protein 7.5 Albumin 4.2 Globulin 3.3 Albumin/Globulin Ratio 1.3 Ur Collection Type Clean Catch Urine Color Colorless A Urine Clarity Clear Urine pH 6.0 Ur Specific [place] 1.010 Urine Protein 2+ A Urine Glucose (UA) 2+ A Urine Ketones Negative Urine Blood 2+ A Urine Nitrite Negative Urine Bilirubin Negative Urine Urobilinogen (Auto) Negative Ur Leukocyte Esterase Positive Urine RBC 39 H Urine WBC 7 H Ur Squamous Epith Cells 2 Urine Bacteria None Ur Culture Indicated? Not Indicated Quality Measures Quality Measures VTE prophylaxis Assessment & Plan Assessment Current Active Medications: Generic Name Dose Route Start Last Admin Trade Name Freq PRN Reason Stop Dose Admin Acetaminophen 500 mg 07/04/24 20:29 07/05/24 08:22 Acetaminophen 500 Mg Tablet PO 08/03/24 20:28 500 mg Q6HR PRN Administration PAIN SCALE 1-3 (mild Hydrocodone Bitart/Acetaminophen 1 tab 07/04/24 15:06 Hydrocodone/Apap 5/325 Tablet PO 07/09/24 15:05 Q6HR PRN PAIN SCALE 4-10(Mod-Sev Albuterol 1 puff 07/03/24 19:10 07/03/24 23:49 Albuterol Inh 8 Gm INH 08/02/24 19:09 1 puff Q6H PRN Administration SHORTNESS OF BREATH Albuterol/Ipratropium 3 ml 07/04/24 13:08 Albuterol/Ipratropium (Duoneb) Rt Lisa 3 Ml Nebu INH 08/03/24 13:07 Q4HRRT PRN WHEEZING Amlodipine Besylate 5 mg 07/03/24 21:00 07/05/24 08:23 Amlodipine Besylate 5 Mg Tablet PO 08/02/24 20:59 5 mg BID [place] Administration Artificial Tears 0 drop 07/04/24 06:04 Artificial Tears 225 Drop/15 Ml Btl BOTH EYES 08/03/24 06:03 PRN PRN TO KEEP EYES MOIST Bisacodyl 5 mg 07/05/24 08:22 Bisacodyl 5 Mg Tabec PO 07/05/24 08:23 X1 ONE Protocol Docusate Sodium 100 mg 07/04/24 21:00 07/05/24 08:22 Docusate Sod 100 Mg Capsule PO 08/03/24 20:59 100 mg BID [place] Administration Protocol Guaifenesin/Dextromethorphan 1 each 07/04/24 08:24 07/05/24 02:20 Guaifenesin/Dm Tablet PO 08/03/24 08:23 1 each BID PRN Administration COUGH Non-Formulary Medication 1 cap 07/04/24 09:00 07/04/24 15:51 [place] 1-Cwd-Nnc-Fish Oil [Fish Oil] PO 08/03/24 08:59 Not Given QDAY [facility] Ondansetron HCl 4 mg 07/04/24 20:29 07/05/24 05:50 Ondansetron Inj 2 Mg/Ml Inj 2 Ml IV 08/03/24 20:28 4 mg Q6HR PRN Administration NAUSEA OR VOMITING Protocol Trelegy Ellipta ( 1 ea 07/04/24 09:00 07/05/24 07:13 Fluticasone/ INH 08/03/24 08:59 Not Given Umeclidinium/ QDAY [place] Vilanterol) 100/62.5 /25 Phenazopyridine HCl 100 mg 07/05/24 08:22 Phenazopyridine Hcl 100 Mg Tablet PO 07/05/24 08:23 X1 ONE Sumatriptan Succinate 50 mg 07/05/24 08:24 Sumatriptan 25 Mg Tablet PO 07/05/24 08:25 X1 ONE Plan Jess Carrillo is a 58 year-old female with a past medical history of polycystic kidney disease (40 years, has been declining medical treatment including CECI inhibitor/ARB/Jynarque), CKD stage V secondary to PCKD, asthma, and renal osteodystrophy who has followed Dr. Slater for the last few years and noted to have worsening renal function with significant azotemia, anemia, hypercalcemia, and hyperphosphatemia admitted for PD catheter placement and initiation of IP LITIGATION PARALEGAL. #Acute on chronic renal failure #ADPKD Acute on chronic renal insufficiency secondary to slow progression (~ 40 years) of underlying PKD leading towards ESRD but patient declined all medical management, including JYNARQUE. IP LITIGATION PARALEGAL options given and patient chose peritoneal dialysis. - Dr. Smith consulted, status-post placement of PD catheter on 07/04 - PPD placed 07/03, pending read on 07/05 after 6 PM - Hepatitis panel negative #Renal osteodystrophy, secondary to CKD Home calcitriol and vitamin D, but will hold given hypercalcemia of 11.3. #Chronic, normocytic anemia, likely secondary to CKD Already given Retacrit 10,000 units SC x1 and Feraheme 510 mg IV x1 on 07/04. #Hypertension - Amlodipine 5 mg PO BID #Asthma - Trelegy Ellipta - Albuterol inhaler PRN Hospital management: Disposition: pending PPD read and BM for symptomatic relief of pain Diet: renal Lines: peripheral CODE STATUS: full code ----- Plan discussed with attending physician Dr. Nohemy Jang MD PGY-1 Internal Medicine Attending Provider Attestation/Addendum Patient seen and examined with resident physician Dr. Ricketts. Note reviewed, agree with findings and recommendations. S/p PD catheter. Complaining of discomfort while urinating and also constipation. Colace, Dulcolax ordered. Spoke to Dr. Smith-discomfort while urinating is normal after PD catheter placement as it is touching the bladder wall. Will monitor closely. Possible discharge either tonight or tomorrow.
[2024-07-05] MEDS: bisacodyL 5 MG TABEC PO (09:03)
[2024-07-05] MEDS: SUMAtriptan 25 MG TABLET 50 MG PO (09:03)
[2024-07-05] MEDS: PHENAZOPYRIDINE HCL 100 MG TABLET PO (09:04)
--- NOTE | 2024-07-05 11:23 | ESPR_ITS ---
Documentation for date of: 07/05/24 Subjective Subjective Narrative: Patient is seen and examined. She is complaining of some lower abdominal pain and epigastric pain. She has not had bowel movement Exam Vital Signs Temp Pulse Resp BP Pulse Ox O2 Del Method O2 Flow Rate 98.5 F 96 17 155/86 H 99 Room Air 2 07/05/24 08:00 07/05/24 08:23 07/05/24 08:00 07/05/24 08:23 07/05/24 08:00 07/05/24 08:00 07/04/24 13:25 Constitutional Constitutional: no acute distress Routine Abdominal Exam Abdominal: Present soft, normoactive bowel sounds and tenderness (Minimal tenderness around incisions. PD catheter in place and intact without drainage or bleeding); Absent distended Assessment & Plan Assessment Additional comments: Postop day #1 status post laparoscopic assisted placement of peritoneal dialysis catheter Plan Laxative given to assist with bowel movement. May discharge from [facility]. Follow-up with Dr Smith in 2 weeks. Procedures Procedures Laparoscopic assisted placement of peritoneal dialysis catheter
[2024-07-05] MEDS: LACTULOSE SYRUP 20 GM/30 ML UDC PO (21:01)
--- NOTE | 2024-07-05 23:30 | PC.NURSE ---
Pt complaining of abdominal pain, cramping and nauseated, MD Slater made aware, new order made and will carried out.
[2024-07-05] MEDS: ALPRazoLAM 0.25 MG TABLET PO (23:33)
[2024-07-06] VITALS: BP 127/81; PULSE 117; RESP 17; TEMP 37.1; O2SAT 95
[2024-07-06 04:00] VITALS: BP 138/85; PULSE 91; RESP 18; TEMP 36.6; O2SAT 95
--- NOTE | 2024-07-06 06:19 | PC.NURSE ---
Pt still complaining of cramping on her lower abdomen, no BM yet at this time, MD Slater made aware, ordered suppository for the pt.
[2024-07-06] MEDS: bisacodyL 10 MG SUPP PR (06:28)
[2024-07-06 07:42] LABS: Basophils % (Auto) 0 % (0-2.5); Eosinophils % (Auto) 0 % (0-10); Hematocrit 31.1 % (36.0-46.0); Hemoglobin 9.9 g/dL (12.0-16.0); Immature Granulocytes % (Auto) 1 % (0-0); Immature Granulocytes Auto 0.07 Thou/mm3 (0.00-0.00); Lymphocytes # (Auto) 0.7 Thou/mm3 (1.0-4.8); Lymphocytes % (Auto) 8 % (10-50); Mean Corpuscular HGB Conc 31.8 g/dl (31.0-37.0); Mean Corpuscular Hemoglobin 28.9 pg (25.0-35.0); Mean Corpuscular Volume 91 fL (80-100); Monocytes # (Auto) 0.3 Thou/mm3 (0.0-0.8); Monocytes % (Auto) 3 % (0-12); Neutrophils # (Auto) 8.1 Thou/mm3 (1.8-7.7); Neutrophils % (Auto) 88 % (37-80); Nucleated Red Blood Cell % 0 /100 WBC (0); Platelet Count 197 Thou/mm3 (140-440); RDW Standard Deviation 43.7 fL (36.4-46.3); Red Blood Count 3.43 Miln/mm3 (4.00-5.20); White Blood Count 9.1 Thou/mm3 (3.6-11.0)
[2024-07-06 08:00] VITALS: BP 125/76; PULSE 104; RESP 17; TEMP 37.8; O2SAT 95
[2024-07-06 08:32] LABS: Alanine Aminotransferase < 7 U/L (10-49); Albumin, Serum 4.6 gm/dL (3.4-4.8); Albumin/Globulin Ratio 1.2 (1.2-2.2); Alkaline Phosphatase 68 U/L (46-116); Anion Gap 14 (7-16); Aspartate Amino Transferase 22 U/L (0-34); BUN/Creatinine Ratio 17 Ratio (12-20); Bilirubin,Total 0.3 mg/dL (0.3-1.2); Calcium 10.7 mg/dL (8.3-10.6); Calcium (Corrected) 10.7 mg/dL (8.5-10.1); Carbon Dioxide 18.7 mMol/L (20.0-31.0); Chloride 101 mMol/L (98-107); Estimated Creatinine Clearance 8.3 mL/min (>60); Globulin 3.7 gm/dL (2.3-3.5); Glucose 150 mg/dL (74-106); Osmolality,Calculated 303 (275-295); Potassium 4.6 mMol/L (3.4-5.1); Sodium 134 mMol/L (136-145); Total Protein 8.3 gm/dL (5.7-8.2); eGFR 8 See Note
[2024-07-06 08:33] LABS: Blood Urea Nitrogen 104 mg/dL (9-23)
[2024-07-06 10:33] VITALS: BP 125/76; PULSE 95
[2024-07-06] MEDS: amLODIPine BESYLATE 5 MG TABLET PO (10:33)
[2024-07-06] MEDS: DOCUSATE SOD 100 MG CAPSULE PO (10:33)
--- NOTE | 2024-07-06 11:03 | PD.NEPHDC ---
Planned Discharge Date 07/06/24 DS: Providers Provider Date of admission: 07/03/24 15:50 Primary care physician: Eran Lee MD Admitting Provider: Thiago Slater MD Attending Provider on Admission: Thiago Slater MD Consults: 07/03/24 16:31 Consult to General Surgery Routine Comment: Consulting Provider: Latanya Smith 07/04/24 08:00 Referral Discharge Planning Stat Comment: op dialysis at dialysis Attending Provider on DC: Thiago Slater MD Discharging Provider: Thiago Slater MD Discharge Diagnosis Discharge Diagnosis (1) Acute on chronic renal failure: Status: Acute Assessment & Plan: Jess Carrillo is a 58 year-old female with a past medical history of polycystic kidney disease (40 years, has been declining medical treatment including CECI inhibitor/ARB/Jynarque), CKD stage V secondary to PCKD, asthma, and renal osteodystrophy who has followed Dr. Slater for the last few years and noted to have worsening renal function with significant azotemia, anemia, hypercalcemia, and hyperphosphatemia admitted for PD catheter placement and initiation of AUTO ROLLER. 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 AUTO ROLLER options given and patient chose peritoneal dialysis. - Dr. Smith consulted, status-post placement of PD catheter on 07/04 - PPD placed 07/03, read on 07/05 - Hepatitis panel negative Outpatient dialysis arranged. #Renal osteodystrophy, secondary to CKD Home calcitriol and vitamin D, but will hold given hypercalcemia of 11.3--10.7 #Chronic, normocytic anemia, likely secondary to CKD Already given Retacrit 10,000 units SC x1 and Feraheme 510 mg IV x1 on 07/04. #Hypertension - Amlodipine 5 mg PO BID #Asthma - Trelegy Ellipta - Albuterol inhaler PRN (2) ESRD on peritoneal dialysis: Status: Acute Problem List Completed Was Problem List Reviewed/Reconciled?: Yes Hospital Course Hospital Course Hospital course: Ms. Carrillo is a 58year-old female with a history of polycystic kidney disease (40 years-has been declining medical treatment including CECI inhibitor/ARB/Jynarque), CKD stage V secondary to PCKD, asthma, renal osteodystrophy has been following up with me for the last few years and noted to have worsening renal function with a significant azotemia, anemia, hypercalcemia,hyperphosphatemia that I had to send her to the hospital for initiation of dialysis. Renal replacement therapy options given to the patient and patient chose home dialysis. Spoke to Dr. Smith who will do peritoneal dialysis catheter tomorrow. Patient admitted tonight for PD catheter placement tomorrow. Blood pressure 140/94, heart rate 87. Home medications included amlodipine, albuterol, calcitriol, vitamin D, Flonase, questionable gabapentin, potassium Labs showed WBC 6.2, hemoglobin 8.8, platelets 221. INR 1. Sodium 136, potassium 4.7, bicarbonate 21, BUN 4.7, GFR 10, calcium 11.1 hep panel negative. Patient currently seen in medical floor. 07/06/2024 patient received peritoneal dialysis catheter. Complaining of mild discomfort while urinating. Urinalysis did not show any infection. Most likely related to catheter touching the bladder wall. Dr Smith. Outpatient dialysis has been arranged. She is going to be discharged today to be followed up with PD clinic on Monday. Catheter flushes and catheter care instructions were given. Patient having some constipation. Dulcolax pills ordered. Status at Discharge Cognitive/behavioral status at discharge: stable Functional status at discharge: independent ambulation Overall status at discharge: patient is back to baseline Time Spent with Patient Time attestation: Total time spent providing and/or coordinating discharge services: 35min Exam Vital Signs Temp Pulse Resp BP Pulse Ox O2 Del Method O2 Flow Rate 37.8 C 95 17 125/76 95 Room Air 2 07/06/24 08:00 07/06/24 10:33 07/06/24 08:00 07/06/24 10:33 07/06/24 08:00 07/06/24 08:00 07/04/24 13:25 Narrative Exam GENERAL APPEARANCE: Patient seems to be comfortable, adequately hydrated and nourished. HEENT: EOMI, PERRLA NECK: Neck supple, no JVD or bruit CARDIOVASCULAR: Heart regular, no murmurs LUNGS/CHEST: Chest clear to auscultation. No rales, rhonchi, wheezing ABDOMEN: Soft, mild discomfort in abdomen for the PD catheter site. Nondistended. No masses. Normal bowel sounds. EXTREMITIES: No edema, clubbing or cyanosis. SKIN: Skin exam normal without any rashes MUSCULOSKELETAL: Musculoskeletal exam normal PSYCHIATRIC: Normal mood, affect LYMPHATICS: No lymphadenopathy noted NEUROLOGICAL : No neurological deficits Discharge Plan Plan Patient Disposition: HOME (Self Care) Prescriptions/Referrals Prescriptions/Med Rec: New bisacodyl [Dulcolax (bisacodyl)] 5 mg tablet,delayed release (DR/EC) 5 mg PO BID PRN (Reason: constipation) 30 Days Qty: 60 1RF Continued albuterol sulfate [ProAir HFA] 90 mcg/actuation HFA aerosol inhaler 1 - 2 puff INHALATION Q6HR MDD 0 PRN (Reason: Shortness Of Breath) Patient Comments: INHALE 2 PUFFS BY MOUTH EVERY 4 HOURS NEEDED FOR SHORTNESS OF BREATH OR WHEEZING omega 8-ddt-uow-fish oil [Fish Oil] 1,000 mg (120 mg-180 mg) Capsule 1 cap PO QDAY fluticasone propionate [Flovent HFA] 44 mcg/actuation HFA aerosol inhaler 1 puff INHALATION BID Patient Comments: INHALE 1 PUFF INTO THE LUNGS TWICE A DAY FOR 30 DAYS potassium chloride 10 mEq tablet,ER particles/crystals 10 meq PO QDAY amlodipine 5 mg tablet 5 mg PO BID Patient Comments: TAKE 1 TABLET BY MOUTH TWICE A DAY B-complex with vitamin C Tablet 1 tab PO QDAY Discontinued ergocalciferol (vitamin D2) [Vitamin D2] 1,250 mcg (50,000 unit) capsule 1,250 mcg PO QWEEK Patient Comments: TAKE 1 CAPSULE BY MOUTH WEEKLY gabapentin 100 mg capsule 100 mg PO QDAY calcitriol 0.5 mcg capsule 0.5 mcg PO Q12H Patient Comments: TAKE 1 CAPSULE BY MOUTH TWICE A DAY Referrals: Eran Lee MD [Primary Care Provider] - Patient/Caregiver Discharge Instructions Discharge Activity: activity as tolerated Print Language: Senegalese Activity Restrictions/Additional Instructions: f/u with dr. slater - 1-2 weeks f/u with [facility] on Monday- cath flush Starting Monday follow-up at dialysis center to flush peritoneal dialysis catheter with 10 cc normal saline every other day, or at least twice per week. Follow-up with Dr Smith in 2 weeks, please call [phone] for an appointment. Stand Alone Forms: Luna Award Info., Patient Portal Info Letter, Work/Release Restrictions Discharge Order Discharge Orders: Discharge (Routine); Ordered 07/06/24 Ordered By: Thiago Slater (1) Acute on chronic renal failure Qualifiers: Acute renal failure type: unspecified Chronic kidney disease stage: stage 5 (GFR < 15), not on chronic dialysis Qualified Code(s): N17.9 - Acute kidney failure, unspecified; N18.5 - Chronic kidney disease, stage 5
[2024-07-06 12:00] VITALS: BP 115/77; PULSE 102; RESP 18; TEMP 36.7; O2SAT 97
== END 2024-07-06 14:17 | disposition home or self-care (01) ==
PROVIDERS: Surgery; Admitting Provider Internal Medicine; PCP Family Medicine; Visit Provider Internal Medicine
PROC: 0WHG43Z Insertion of Infusion Device into Peritoneal Cavity, Percutaneous Endoscopic Approach (ICD-10-PCS; CPT 49324; principal; 2024-07-04 15:00)
DX: N17.9 Acute kidney failure, unspecified (principal); Z99.2 Dependence on renal dialysis; N25.0 Renal osteodystrophy; Q61.2 Polycystic kidney, adult type; I12.0 Hypertensive chronic kidney disease with stage 5 chronic kidney disease or end stage renal disease; N18.6 End stage renal disease; D63.1 Anemia in chronic kidney disease; J45.909 Unspecified asthma, uncomplicated
CPT/HCPCS: 36415; 80053; 80074; 81001; 85025; 85610; 85730; 86580; 94640; 94664; 96372; 96374; 96376; A4217; A4649; C1750; G0378; J0690; J1100; J1643; J2250; J2405; J2704; J2710; J3010; J3490; J7050; Q0139; Q5105; A9270; J1596; J1920

== ENCOUNTER → 2024-10-30 | Outpatient (CLI) | payer OTHER, SELFPAY ==
--- NOTE | 2024-10-30 | XR_ITS ---
Examination: Knee bilateral, 6 views Technique: Knee AP, lateral, oblique each knee total 6 views Date and time of exam: October 22, 2024 1151 hours INDICATIONS: Bilateral knee pain beginning 10 years ago FINDINGS: Bilateral moderate to advanced tricompartment osteoarthritis This includes severe narrowing medial joint spaces bilaterally No fractures Moderate osteopenia IMPRESSION: Bilateral moderate to advanced tricompartment osteoarthritis
== END | disposition home or self-care (01) ==
LOC: CDIM 11:12
PROVIDERS: PCP Family Medicine; Referring Provider Student in an Organized Health Care Education/Training Program; Visit Provider Student in an Organized Health Care Education/Training Program
DX: M17.0 Bilateral primary osteoarthritis of knee (principal)
CPT/HCPCS: 73562

== ENCOUNTER 2024-12-07 11:03 | Emergency (ER) | payer OTHER, SELFPAY ==
[2024-12-07 11:28] VITALS: BP 146/80; PULSE 90; RESP 18; TEMP 36.8; O2SAT 99; BMI 24.4
--- NOTE | 2024-12-07 12:02 | XR_ITS ---
Examination: CT abdomen and pelvis without contrast. Coronal 3-D reconstructions. Sagittal 2-D reconstructions. Date and time of exam:[place] 25, 1301 hrs. Indications: Renal failure patient with pain in the pelvis at the site of the dialysis catheter CTDI: vol (mGy): 6.51 DLP: (mGycm): 318 Technique: Axial images of the abdomen have been obtained, 3 mm slice thickness Intravenous contrast material has not been administered. Low dose protocols were performed. One or more of the following dose reduction techniques were used; automated exposure control, adjustment of the mA and/or KV according to patient size, use of iterative reconstruction technique. Findings: No focal liver lesions. Advanced bilateral hydronephrosis Aorta normal size No pancreatic mass. No bowel obstruction No bowel obstruction. Peritoneal dialysis catheter satisfactory position. Mild free fluid in the pelvis. Colonic diverticulosis. Severe osteopenia. Bladder intact. Grade 1 spondylolisthesis L4 on L5 with advanced degenerative disc disease at this level Impression: Peritoneal dialysis catheter satisfactory position No abdominal or pelvic abscess End stage bilateral hydronephrosis
[2024-12-07 12:08] LABS: Basophils # (Auto) 0.0 Thou/mm3 (0.0-0.2); Basophils % (Auto) 0 % (0-2.5); Eosinophils # (Auto) 0.5 Thou/mm3 (0.0-0.5); Eosinophils % (Auto) 8 % (0-10); Hematocrit 31.6 % (36.0-46.0); Hemoglobin 10.9 g/dL (12.0-16.0); Immature Granulocytes Auto 0.01 Thou/mm3 (0.00-0.00); Lymphocytes # (Auto) 1.5 Thou/mm3 (1.0-4.8); Lymphocytes % (Auto) 27 % (10-50); Mean Corpuscular HGB Conc 34.5 g/dl (31.0-37.0); Mean Corpuscular Hemoglobin 30.9 pg (25.0-35.0); Mean Corpuscular Volume 90 fL (80-100); Monocytes # (Auto) 0.4 Thou/mm3 (0.0-0.8); Monocytes % (Auto) 7 % (0-12); Neutrophils # (Auto) 3.2 Thou/mm3 (1.8-7.7); Neutrophils % (Auto) 57 % (37-80); Nucleated Red Blood Cell # 0.00 Thou/mm3 (0.00-0.00); Nucleated Red Blood Cell % 0 /100 WBC (0); Platelet Count 190 Thou/mm3 (140-440); RDW Standard Deviation 44.0 fL (36.4-46.3); Red Blood Count 3.53 Miln/mm3 (4.00-5.20); White Blood Count 5.5 Thou/mm3 (3.6-11.0)
[2024-12-07 12:16] LABS: Collection Type, Urine Voided
[2024-12-07] MEDS: MORPHINE SULF INJ 10 MG/ML VIAL 2 MG IM (12:19)
[2024-12-07 12:21] LABS: Bacteria,Urine Rare; Bilirubin,Urine Negative (Negative); Blood,Urine 1+ (Negative); Clarity,Urine Clear (Clear/Hazy); Color,Urine Lt-Yellow (Lt Yel-Yel); Culture Indicated,Urine Not Indicated; Glucose, Urine Trace (Negative); Ketones,Urine Negative (Negative); Leukocyte Esterase,Urine Positive (Negative); Nitrite,Urine Negative (Negative); PH,Urine 7.0 (5.0-7.0); Protein,Urine Trace (Neg - Trace); RBC,Urine 9 /hpf (0-3); Specific Gravity,Urine 1.017 (1.001-1.035); Squamous Epithelial Cell,Urine 5 /hpf (0-5); Urobilinogen,Urine Negative mg/dL (0.0-1.0); WBC,Urine 5 /hpf (0-5)
[2024-12-07 12:31] LABS: Alanine Aminotransferase 14 U/L (10-49); Albumin, Serum 4.0 gm/dL (3.4-4.8); Albumin/Globulin Ratio 1.3 (1.2-2.2); Alkaline Phosphatase 116 U/L (46-116); Anion Gap 14 (7-16); Aspartate Amino Transferase 17 U/L (0-34); BUN/Creatinine Ratio 13 Ratio (12-20); Bilirubin,Total 0.4 mg/dL (0.3-1.2); Blood Urea Nitrogen 72 mg/dL (9-23); Calcium 9.0 mg/dL (8.3-10.6); Calcium (Corrected) 9.0 mg/dL (8.5-10.1); Carbon Dioxide 22.6 mMol/L (20.0-31.0); Chloride 101 mMol/L (98-107); Creatinine (Component) 5.6 mg/dL (0.6-1.3); Estimated Creatinine Clearance 8.7 mL/min (>60); Globulin 3.1 gm/dL (2.3-3.5); Glucose 160 mg/dL (74-106); Lipase 105 U/L (12-53); Osmolality,Calculated 299 (275-295); Potassium 4.3 mMol/L (3.4-5.1); Sodium 138 mMol/L (136-145); Total Protein 7.1 gm/dL (5.7-8.2); eGFR 8 See Note
--- NOTE | 2024-12-07 12:50 | PD.EDABDPN ---
ED Abdominal Pain RME/HPI General Chief Complaint: Abdominal Pain Stated complaint: Dialysis catheter site hurts Time seen by provider: 12/07/24 11:07 Arrival date/time: 12/07/24 11:03 Source: patient Mode of arrival: ambulatory Limitations: no limitations RME / HPI RME / HPI narrative: 59-year-old female history of hypertension end-stage renal disease. She is here today of left lower quadrant pain at her site where she performs peritoneal dialysis. She has no skin erythema, induration, or purulent drainage. She has no fevers or chills. Denies any nausea or vomiting. Has no changes in bowel movements. Denies any urinary complaints. She performs peritoneal dialysis at home daily. She has no other acute complaints or concerns. Related Data Home Medications ?Medication ?Instructions ?Recorded ?Confirmed albuterol sulfate 90 mcg/actuation 1 - 2 puff inhalation Q6HR PRN 12/22/20 07/03/24 aerosol inhaler (ProAir HFA) Shortness Of Breath omega 0-hrv-nbh-fish oil 1,000 mg 1 cap PO QDAY 12/22/20 07/03/24 (120 mg-180 mg) capsule (Fish Oil) fluticasone propionate 44 1 puff inhalation BID 05/12/22 07/03/24 mcg/actuation HFA aerosol inhaler (Flovent HFA) potassium chloride 10 mEq 10 meq PO QDAY 05/12/22 05/12/22 tablet,extended release(part/cryst) B-complex with vitamin C 1 tab PO QDAY 07/03/24 07/03/24 amlodipine 5 mg tablet 5 mg PO BID 07/03/24 07/03/24 Previous Rx's ?Medication ?Instructions ?Recorded bisacodyl 5 mg tablet,delayed 5 mg PO BID PRN constipation 30 07/06/24 release (Dulcolax (bisacodyl)) days #60 tabs dicyclomine 20 mg tablet 20 mg PO TID #14 tabs 12/07/24 simethicone 250 mg capsule 250 mg PO BID PRN abdominal 12/07/24 distention #20 caps Allergies Allergy/AdvReac Type Severity Reaction Status Date / Time Iodinated Contrast Media Allergy Mild Itching Verified 12/07/24 11:08 Review of Systems Review of Systems Systems Reviewed: All systems reviewed, normal except as documented ED Exam General Limitations: Present no limitations General appearance: Present alert and in no apparent distress Head Head exam: Present atraumatic Eye Eye exam: Present normal appearance, PERRL and EOMI ENT ENT exam: Present normal exam, normal oropharynx and mucous membranes moist Neck Neck exam: Present normal inspection, full ROM and trachea midline Chest Chest inspection: Present normal inspection and symmetric chest wall rise Respiratory Respiratory exam: Present normal lung sounds bilaterally Cardiovascular Cardiovascular exam: Present regular rate, normal rhythm and normal heart sounds Abdominal Exam Abdominal exam: Present soft, normal bowel sounds and other (She is point tender near the site of her peritoneal dialysis port. There is no erythema, warmth, induration, or purulent drainage. No fluctuance is appreciated.) Extremities Exam Extremities exam: Present normal inspection and full ROM Back Exam Back exam: Present normal inspection and full ROM Neurological Exam Neurological exam: Present alert, oriented X3 and CN II-XII intact Psychiatric Psychiatric exam: Present normal affect and normal mood Skin Skin exam: Present warm, dry, intact and normal color Course Quality Measures none Orders Category Date Time Status CT abdomen pelvis wo con Stat Exams 12/07/24 12:02 Completed CBC Stat Lab 12/07/24 11:37 Completed CMP [Comprehensive Metabolic Panel] Stat Lab 12/07/24 11:37 Completed Lipase Stat Lab 12/07/24 11:37 Completed UA, C/S IF [Urinalysis, C/S if Indicated] Stat Lab 12/07/24 11:56 Completed Morphine Inj Med 12/07/24 12:04 Discontinued 2 mg IM X1 ONE Vital Signs Vital signs: Vital Signs Temperature 98.2 F 12/07/24 11:28 Pulse Rate 90 12/07/24 11:28 Respiratory Rate 18 12/07/24 11:28 Blood Pressure 146/80 H 12/07/24 11:28 Pulse Oximetry (%) 99 12/07/24 11:28 Oxygen Delivery Method Room Air 12/07/24 11:28 Abdominal Pain MDM MDM Narrative MDM Narrative:: 59-year-old female is here today of abdominal pain. She does peritoneal dialysis daily at home. Her CBC, CMP, and urinalysis are unremarkable. She has elevated creatinine that is at her baseline. CT of the abdomen pelvis was also obtained which revealed no acute, intra-abdominal, abnormalities. Patient was given a dose of morphine here and is feeling better. She will be discharged with a prescription of Bentyl and simethicone to see if this helps with her symptoms. She is asked to follow-up in clinic this next week for recheck. Return as needed for worsening or emergent changes. Patient data External records reviewed:: [facility] previous records Clinical information provided by:: patient Social determinants that could affect healthcare access:: none Patient has the following chronic illnesses:: Hypertension, end-stage renal disease How is presenting disease/condition affected by chronic disease/condition?: no chronic disease Evaluation data The following diagnostics were reviewed and interpreted by me:: lab results (No metabolic derangement, no leukocytosis or significant anemia) and radiology exam(s) (CT abdomen pelvis is unremarkable.) Lab and/or radiology exams considered but not ordered:: n/a Interpretation Summary: No acute abnormalities Medications / Prescriptions Medications or Prescriptions considered but not ordered:: n/a Medication administrations:: Medication Administration History Discontinued Medications Morphine Sulfate (Morphine Sulf Inj 10 Mg/Ml Vial) 2 mg IM X1 ONE Stop: 12/07/24 12:05 Last Admin: 12/07/24 12:19 Dose: 2 mg Documented By: MF See above Consultations Consultation(s) initiated? (list below): No Diagnosis Differential diagnosis abdominal pain: abdominal pain, acute appendicitis, constipation, pancreatitis and small bowel obstruction Most likely diagnosis given after review of the tests above:: Abdominal cramping Admission Indicated Admission indicated?: not indicated Admission Request Was there a request for admission?: No Disposition Plan Disposition Plan: Discharge Discharge Attestation Discharge Attestation: The patient and all family members were given an opportunity to ask questions and understood the discharge instructions. Discharge instructions specifically effects, indications for sooner follow up or return to the emergency department, and the expected course of current diagnosis. Patient condition: Stable Discharge Plan Plan Patient Disposition: HOME (Self Care) Patient condition on transfer: Stable Prescriptions/Referrals Prescriptions/Med Rec: New simethicone 250 mg capsule 250 mg PO BID PRN (Reason: abdominal distention) Qty: 20 0RF dicyclomine 20 mg tablet 20 mg PO TID Qty: 14 0RF No Action albuterol sulfate [ProAir HFA] 90 mcg/actuation HFA aerosol inhaler 1 - 2 puff INHALATION Q6HR MDD 0 PRN (Reason: Shortness Of Breath) Patient Comments: INHALE 2 PUFFS BY MOUTH EVERY 4 HOURS NEEDED FOR SHORTNESS OF BREATH OR WHEEZING omega 0-qft-vih-fish oil [Fish Oil] 1,000 mg (120 mg-180 mg) Capsule 1 cap PO QDAY fluticasone propionate [Flovent HFA] 44 mcg/actuation HFA aerosol inhaler 1 puff INHALATION BID Patient Comments: INHALE 1 PUFF INTO THE LUNGS TWICE A DAY FOR 30 DAYS potassium chloride 10 mEq tablet,ER particles/crystals 10 meq PO QDAY amlodipine 5 mg tablet 5 mg PO BID Patient Comments: TAKE 1 TABLET BY MOUTH TWICE A DAY B-complex with vitamin C Tablet 1 tab PO QDAY bisacodyl [Dulcolax (bisacodyl)] 5 mg tablet,delayed release (DR/EC) 5 mg PO BID PRN (Reason: constipation) 30 Days Qty: 60 1RF Referrals: Eran Lee MD [Primary Care Provider] - In 1 week Problem List Clinical Impression: Abdominal pain Patient/Caregiver Discharge Instructions Education Materials: Abdominal Pain Additional Instructions: -Use the provided medication as prescribed. -Follow up with your primary doctor next week. -Return here as needed for any emergent changes. Print Language: Somali Stand Alone Forms: [facility] Award Info., Patient Portal Info Letter
[2024-12-07 14:36] VITALS: BP 150/88; PULSE 76; RESP 17; TEMP 36.6; O2SAT 100
== END 2024-12-07 15:33 | disposition home or self-care (01) ==
PROVIDERS: Physician Assistant Medical; Emergency Provider Emergency Medicine; PCP Family Medicine
DX: R10.32 Left lower quadrant pain (principal); R10.2 Pelvic and perineal pain; I12.0 Hypertensive chronic kidney disease with stage 5 chronic kidney disease or end stage renal disease; N18.6 End stage renal disease; Z99.2 Dependence on renal dialysis
CPT/HCPCS: 36415; 74176; 80053; 81001; 83690; 85025; 96372; 99284; J2270

== ENCOUNTER → 2025-04-18 | Outpatient (CLI) | payer OTHER, SELFPAY ==
--- NOTE | 2025-04-18 14:15 | XR_ITS ---
Examination: Shoulder, right, 3 views Technique: Shoulder AP internal rotation, AP external rotation, Y view shoulder, 3 views Exam date and time : April 18, 2025, 1433 hours INDICATIONS: Right shoulder pain 1 month. FINDINGS: Moderate osteopenia Moderate osteoarthritis glenohumeral joint No fracture or shoulder dislocation IMPRESSION: Moderate osteoarthritis glenohumeral joint
--- NOTE | 2025-04-18 14:15 | XR_ITS ---
Examination: Hand, left 3 views Technique: Hand AP, oblique, lateral 3 views Date and time of exam: April 18, 2025, 1433 hours INDICATIONS: Left hand pain beginning 1 week ago. FINDINGS: Moderate osteopenia. Mild diffuse narrowing joints of the wrist and hand No erosive arthritis No fractures No avascular necrosis IMPRESSION: Nonspecific mild narrowing joints of the wrist and hand No erosive arthritis
== END | disposition home or self-care (01) ==
LOC: CDIM 14:07
PROVIDERS: PCP Family Medicine; Referring Provider Registered Nurse; Visit Provider Registered Nurse
DX: M25.842 Other specified joint disorders, left hand (principal); M25.832 Other specified joint disorders, left wrist; M19.011 Primary osteoarthritis, right shoulder
CPT/HCPCS: 73030; 73130

== ENCOUNTER → 2025-05-16 | Outpatient (CLI) | payer OTHER, SELFPAY ==
--- NOTE | 2025-05-16 09:00 | XR_ITS ---
Examination: Screening digital mammography, bilateral Computer aided detection 3-D breast Tomosynthesis, bilateral Date and time of exam: 05/16/2025, 9:06 a.m. Comparisons: 01/05/2024 Indications: Screening Technique: Nonmagnified MLO, CC views of the breasts to been obtained, reconstructed from 3-D Tomosynthesis images. R2 computer aided detection program utilized for evaluation of suspicious masses and/or abnormal calcifications. 3-D Tomosynthesis images obtained. Technologist: Findings: There are scattered areas of fibroglandular density. No evidence of abnormal masses or suspicious calcifications. Impression: BI-RADS category 1: Negative findings (within normal) Recommend 1 year follow-up mammogram
== END | disposition home or self-care (01) ==
PROVIDERS: PCP Registered Nurse; Referring Provider Registered Nurse; Visit Provider Registered Nurse
DX: Z12.31 Encounter for screening mammogram for malignant neoplasm of breast (principal); R92.313 Mammographic fatty tissue density, bilateral breasts
CPT/HCPCS: 77063; 77067